=== PATIENT | female | born 1930 | race Hispanic/Latino ===

== ENCOUNTER 2018-01-20 08:10 | Day surgery (SDC) | payer MEDICARE ==
[~2018-01-20] VITALS: Ht 149.9 cm; Wt 52.5 kg
[~2018-01-20 08:10] MED LIST: LEVO100T12 PO; SODIUM CHLORIDE 0.9% 1000ML 1,000 ML IV ONE
[2018-01-20 10:21] VITALS: BP 137/69
[2018-01-20] MEDS ORDERED: LEVO25TA54 PO (10:29)
[2018-01-20] MEDS ORDERED: ISOVUE-370 50ML VIAL IV ONE (11:16)
[2018-01-20] MEDS ORDERED: PROPOFOL 1000 MG/100 ML 100 ML IV ONE (11:33)
[2018-01-20] MEDS ORDERED: GLUCAGON 1MG KIT 1 MG ML ONE (11:54)
[2018-01-20 12:28] VITALS: BP 108/76
[2018-01-20] MEDS ORDERED: INDOMETHACIN 50 MG SUPP.RECT RC SCH (12:30)
== END 2018-01-20 13:40 | disposition home or self-care (01) ==
LOC: ENDO 08:10 → DAH 08:10 → ENDO 13:40
PROVIDERS: ATTEND Internal Medicine
DX: R17 Unspecified jaundice (principal); K83.1 Obstruction of bile duct; E03.9 Hypothyroidism, unspecified; Z85.00 Personal history of malignant neoplasm of unspecified digestive organ; Z90.49 Acquired absence of other specified parts of digestive tract; Z98.890 Other specified postprocedural states; Z79.899 Other long term (current) drug therapy; Z80.0 Family history of malignant neoplasm of digestive organs
CPT/HCPCS: 43262; 43274; 74330; A4606; C1769; C2625; J1610; J2704; J7030; Q9967

== ENCOUNTER → 2018-01-27 | Outpatient (CLI) | payer MEDICARE ==
[~2018-01-27] MED LIST changes: +BISA-72 PO; -LEVO100T12 PO; +LEVO25TA54 PO; +PROC10TA13 PO; -SODIUM CHLORIDE 0.9% 1000ML 1,000 ML IV ONE
== END | disposition home or self-care (01) ==
LOC: OIH 14:20
PROVIDERS: ATTEND Internal Medicine
DX: R17 Unspecified jaundice (principal); M81.0 Age-related osteoporosis without current pathological fracture
CPT/HCPCS: 74018

== ENCOUNTER 2018-02-08 09:54 | Inpatient (IN) | payer MEDICARE ==
[~2018-02-08] VITALS: Ht 149.9 cm; Wt 53.6 kg
[~2018-02-08 09:54] MED LIST changes: -BISA-72 PO; -PROC10TA13 PO
[2018-02-08 10:20] LABS: BASOPHILS % (AUTO) 0.1 % (0.0-5.0); EOSINOPHILS % (AUTO) 0.1 % (0.0-8.0); HEMATOCRIT 22.8 % (36-48); LYMPHOCYTES % (AUTO) 10.4 % (21.0-51.0); MEAN CORPUSCULAR HEMOGLOBIN 33.5 pg (27.0-33.0); MEAN CORPUSCULAR HGB CONC 34.3 g/dL (32.0-36.0); MEAN CORPUSCULAR VOLUME 97.7 fL (79-99); MONOCYTES % (AUTO) 6.3 % (3.0-13.0); NEUTROPHILS % (AUTO) 83.1 % (40.0-77.0); PLATELET COUNT (AUTO) 321 K/uL (130-400); RED BLOOD CELL COUNT(AUTO) 2.33 MIL/uL (4.00-5.50); RED CELL DISTRIBUTION WIDTH 15.6 % (11.0-15.5)
[2018-02-08 10:25] LABS: WHITE BLOOD COUNT (AUTO) 31.4 K/uL (4.8-10.8)
[2018-02-08 10:30] LABS: CREATININE 1.9 mg/dL (0.5-1.5); INR 1.15 (0.85-1.15); PARTIAL THROMBOPLASTIN TIME 28.1 SEC (26.3-35.5); POTASSIUM 3.9 mmol/L (3.5-5.1)
[2018-02-08 10:40] LABS: ALBUMIN 1.6 g/dL (3.5-5.0); BILIRUBIN,TOTAL 9.8 mg/dL (0.2-1.0); TOTAL PROTEIN, SERUM 7.6 g/dL (6.0-8.3)
[2018-02-08 10:51] LABS: BAND NEUTROPHILS % (MANUAL) 1 % (0-2); LYMPHOCYTES % (MANUAL) 8 % (22-44); MONOCYTES % (MANUAL) 3 % (2-9); SEGMENTED NEUTROPHILS % 88 % (40-70)
[2018-02-08 10:53] LABS: MAN.DIFF COMMENT-IMPRESSION MANUAL DIFFERENTIAL; PLATELET MORPHOLOGY COMMENT ADEQUATE
[2018-02-08 11:06] LABS: AMYLASE 90 U/L (25-115); CREATINE KINASE MB < 0.5 ng/mL (0.5-3.6); CREATINE KINASE, TOTAL 36 U/L (21-232); LIPASE 895 U/L (114-286)
[2018-02-08] MEDS ORDERED: MEROPENEM 1 GM VIAL ONE (12:50)
[2018-02-08] MEDS ORDERED: SODIUM CHLORIDE 0.9% 1000ML 1,000 ML IV ONE (12:51)
[2018-02-08] MEDS ORDERED: DIPHENHYDRAMINE HCL 25 MG CAPSULE PO PRN (14:30)
[2018-02-08] MEDS ORDERED: MORPHINE SULFATE 2 MG/ML 1ML SYG IV PRN (14:30)
[2018-02-08] MEDS ORDERED: ACETAMINOPHEN-CODEINE 300/30MG TAB PO PRN ×2 (14:30)
[2018-02-08] MEDS ORDERED: LACTULOSE 20 GM/30 ML UDCUP PO PRN (14:30)
[2018-02-08] MEDS ORDERED: GUAIFENESIN-DM 200/20 MG 10 ML PO PRN (14:30)
[2018-02-08] MEDS ORDERED: MAG HYDROX/AL HYDROX/SIMETH ES 30 ML SUSP UDCUP PO PRN (14:30)
[2018-02-08] MEDS ORDERED: ACETAMINOPHEN 325 MG TAB PO PRN ×2 (14:30)
[2018-02-08] MEDS ORDERED: ONDANSETRON HCL 4 MG/2 ML VIAL IV PRN (14:30)
[2018-02-08] MEDS ORDERED: MEROPENEM 500MG+NS 50ML 50 ML IV SCH (14:30)
[2018-02-08] MEDS ORDERED: HYDRALAZINE HCL 20 MG/ML VIAL IV PRN (14:30)
[2018-02-08] MEDS ORDERED: NITROGLYCERIN 0.4 MG SL TAB SL PRN (14:30)
[2018-02-08] MEDS ORDERED: MORPHINE SULFATE 4 MG/1ML SYG IV PRN (14:30)
[2018-02-08] MEDS ORDERED: DIATR MEGLU/DIATRIZOATE SODIUM 30 ML BOTTLE ONE (18:58)
[2018-02-08 19:30] LABS: BILIRUBIN,DIRECT 7.4 mg/dL (0.0-0.3); BILIRUBIN,TOTAL 8.5 mg/dL (0.2-1.0)
[2018-02-08] MEDS: MEROPENEM 500 MG VIAL IVP SCH (21:00)
[2018-02-08] MEDS ORDERED: MEROPENEM 500 MG VIAL ONE (21:51)
[2018-02-08 22:21] VITALS: BP 112/52
[2018-02-09 03:54] VITALS: BP 109/47
[2018-02-09] MEDS: SODIUM CHLORIDE 0.9% 1000ML 1,000 ML IV SCH ×2 (04:30→16:27)
[2018-02-09 04:37] LABS: MEAN CORPUSCULAR HEMOGLOBIN 32.2 pg (27.0-33.0); MEAN CORPUSCULAR HGB CONC 33.1 g/dL (32.0-36.0); MEAN CORPUSCULAR VOLUME 97.3 fL (79-99); PLATELET COUNT (AUTO) 288 K/uL (130-400); RED BLOOD CELL COUNT(AUTO) 2.06 MIL/uL (4.00-5.50); RED CELL DISTRIBUTION WIDTH 15.6 % (11.0-15.5); WHITE BLOOD COUNT (AUTO) 20.9 K/uL (4.8-10.8)
[2018-02-09 04:42] LABS: HEMATOCRIT 20.1 % (36-48)
[2018-02-09 04:45] LABS: LYMPHOCYTES % (MANUAL) 15 % (22-44); MAN.DIFF COMMENT-IMPRESSION MANUAL DIFFERENTIAL; MONOCYTES % (MANUAL) 7 % (2-9); PLATELET MORPHOLOGY COMMENT ADEQUATE; REACTIVE LYMPHOCYTES 1 % (0-0); SEGMENTED NEUTROPHILS % 77 % (40-70)
[2018-02-09 04:57] LABS: ALBUMIN 1.2 g/dL (3.5-5.0); BILIRUBIN,TOTAL 8.6 mg/dL (0.2-1.0); CREATININE 1.5 mg/dL (0.5-1.5); MAGNESIUM 1.5 mg/dL (1.80-2.40); PHOSPHORUS 2.9 mg/dL (2.5-4.9); POTASSIUM 3.8 mmol/L (3.5-5.1); TOTAL PROTEIN, SERUM 5.9 g/dL (6.0-8.3)
[2018-02-09] MEDS ORDERED: SODIUM CHLORIDE 0.9% 1000ML 1,000 ML IV ONE (05:01)
[2018-02-09] MEDS: MEROPENEM 500 MG VIAL IVP SCH ×3 (05:04→21:27)
[2018-02-09] MEDS ORDERED: BISA-72 PO (07:59)
[2018-02-09] MEDS ORDERED: PROC10TA13 PO (07:59)
[2018-02-09 08:00] VITALS: BP 91/38
[2018-02-09] MEDS: FAMOTIDINE 20MG TAB 20 MG TAB PO SCH (10:02)
[2018-02-09 12:00] VITALS: BP 106/52
[2018-02-09] MEDS ORDERED: SODIUM CHLORIDE 0.9% 250 ML IV ONE (15:22)
[2018-02-09 16:00] VITALS: BP_SYST 107; BP_SYST 139; BP_DIAS 54; BP_DIAS 75
[2018-02-09] MEDS ORDERED: MAGNESIUM 2GM PREMIX 50ML 50 ML IV SCH (19:30)
[2018-02-09 19:35] VITALS: BP 109/50
[2018-02-09 21:25] LABS: APPEARANCE,URINE Cloudy (CLEAR); BILIRUBIN,URINE Large (NEGATIVE); COLOR,URINE Dark Yellow (YELLOW); GLUCOSE, URINE (UA) Negative (NEGATIVE); KETONES,URINE Negative (NEGATIVE); LEUKOCYTE ESTERASE ,URINE Trace (NEGATIVE); NITRATE,URINE Negative (NEGATIVE); OCCULT BLOOD,URINE Negative (NEGATIVE); PH,URINE 5.5 (5.0-8.0); PROTEIN,URINE Trace (NEGATIVE)
[2018-02-09 21:53] LABS: SQUAMOUS EPITHELIAL CELL,UR 30-50 /HPF (0-2)
[2018-02-09 21:54] LABS: BACTERIA,URINE Few /HPF (None Seen); RBC,URINE None Seen /HPF (0-1); WBC,URINE 0-1 /HPF (0-1)
[2018-02-10] VITALS (7 sets, daily range): BP systolic 110–121; BP diastolic 49–60
[2018-02-10 05:26] LABS: HEMATOCRIT 24.2 % (36-48); MEAN CORPUSCULAR HEMOGLOBIN 32.5 pg (27.0-33.0); MEAN CORPUSCULAR HGB CONC 35.1 g/dL (32.0-36.0); MEAN CORPUSCULAR VOLUME 92.6 fL (79-99); PLATELET COUNT (AUTO) 256 K/uL (130-400); RED BLOOD CELL COUNT(AUTO) 2.62 MIL/uL (4.00-5.50); RED CELL DISTRIBUTION WIDTH 19.2 % (11.0-15.5); WHITE BLOOD COUNT (AUTO) 15.8 K/uL (4.8-10.8)
[2018-02-10 05:55] LABS: ALBUMIN 1.1 g/dL (3.5-5.0); BILIRUBIN,DIRECT 7.9 mg/dL (0.0-0.3); BILIRUBIN,TOTAL 9.2 mg/dL (0.2-1.0); CREATININE 1.4 mg/dL (0.5-1.5); POTASSIUM 3.6 mmol/L (3.5-5.1); TOTAL PROTEIN, SERUM 5.9 g/dL (6.0-8.3)
[2018-02-10] MEDS: MEROPENEM 500 MG VIAL IVP SCH ×3 (05:55→22:30)
[2018-02-10] MEDS: LEVOTHYROXINE 25 MCG TABLET PO SCH (06:02)
[2018-02-10] MEDS: SODIUM CHLORIDE 0.9% 1000ML 1,000 ML IV SCH ×2 (07:10→20:30)
[2018-02-10] MEDS: FAMOTIDINE 20MG TAB 20 MG TAB PO SCH (08:32)
[2018-02-10] MEDS ORDERED: POTASSIUM CHLORIDE 20MEQ/100ML 100 ML IV PRN (17:00)
[2018-02-10] MEDS ORDERED: POTASSIUM CHLORIDE 10% ELIXIR 20 MEQ/15 ML UDCUP PO PRN (17:00)
[2018-02-10] MEDS ORDERED: POTASSIUM CHLORIDE 20 MEQ ERTAB PO PRN (17:00)
[2018-02-10] MEDS ORDERED: LIDOCAINE HCL-MPF 1% 2ML VIAL IVP PRN (17:00)
[2018-02-11 04:34] LABS: BASOPHILS % (AUTO) 0.2 % (0.0-5.0); EOSINOPHILS % (AUTO) 1.3 % (0.0-8.0); HEMATOCRIT 28.7 % (36-48); LYMPHOCYTES % (AUTO) 19.6 % (21.0-51.0); MEAN CORPUSCULAR HEMOGLOBIN 31.2 pg (27.0-33.0); MEAN CORPUSCULAR HGB CONC 33.2 g/dL (32.0-36.0); MONOCYTES % (AUTO) 8.5 % (3.0-13.0); NEUTROPHILS % (AUTO) 70.4 % (40.0-77.0); PLATELET COUNT (AUTO) 315 K/uL (130-400); RED BLOOD CELL COUNT(AUTO) 3.05 MIL/uL (4.00-5.50); RED CELL DISTRIBUTION WIDTH 19.2 % (11.0-15.5); WHITE BLOOD COUNT (AUTO) 16.3 K/uL (4.8-10.8)
[2018-02-11 04:51] LABS: ALBUMIN 1.3 g/dL (3.5-5.0); BILIRUBIN,TOTAL 10.4 mg/dL (0.2-1.0); CREATININE 1.3 mg/dL (0.5-1.5); POTASSIUM 3.9 mmol/L (3.5-5.1); TOTAL PROTEIN, SERUM 6.4 g/dL (6.0-8.3)
[2018-02-11 04:53] LABS: BILIRUBIN,DIRECT 9.2 mg/dL (0.0-0.3)
[2018-02-11 04:58] VITALS: BP 102/46
[2018-02-11] MEDS: MEROPENEM 500 MG VIAL IVP SCH ×3 (06:31→22:02)
[2018-02-11] MEDS: LEVOTHYROXINE 25 MCG TABLET PO SCH (06:35)
[2018-02-11 07:00] VITALS: BP 106/42
[2018-02-11] MEDS: FAMOTIDINE 20MG TAB 20 MG TAB PO SCH (08:35)
[2018-02-11] MEDS: SODIUM CHLORIDE 0.9% 1000ML 1,000 ML IV SCH (08:51)
[2018-02-11 11:00] VITALS: BP 103/48
[2018-02-11 16:00] VITALS: BP 118/59
[2018-02-11 20:00] VITALS: BP 110/56
[2018-02-12] VITALS (7 sets, daily range): BP systolic 99–120; BP diastolic 45–65
[2018-02-12] MEDS: MEROPENEM 500 MG VIAL IVP SCH ×3 (04:48→21:17)
[2018-02-12 06:37] LABS: CREATININE 1.1 mg/dL (0.5-1.5); POTASSIUM 3.8 mmol/L (3.5-5.1)
[2018-02-12] MEDS: LEVOTHYROXINE 25 MCG TABLET PO SCH (07:04)
[2018-02-12] MEDS: FAMOTIDINE 20MG TAB 20 MG TAB PO SCH (09:03)
[2018-02-13 03:35] VITALS: BP 107/59
[2018-02-13] MEDS: MEROPENEM 500 MG VIAL IVP SCH ×3 (05:10→21:47)
[2018-02-13 05:52] LABS: BASOPHILS % (AUTO) 0.4 % (0.0-5.0); EOSINOPHILS % (AUTO) 1.4 % (0.0-8.0); HEMATOCRIT 26.4 % (36-48); LYMPHOCYTES % (AUTO) 16.9 % (21.0-51.0); MEAN CORPUSCULAR HEMOGLOBIN 31.2 pg (27.0-33.0); MEAN CORPUSCULAR HGB CONC 33.6 g/dL (32.0-36.0); MEAN CORPUSCULAR VOLUME 92.8 fL (79-99); MONOCYTES % (AUTO) 9.7 % (3.0-13.0); NEUTROPHILS % (AUTO) 71.6 % (40.0-77.0); PLATELET COUNT (AUTO) 253 K/uL (130-400); RED BLOOD CELL COUNT(AUTO) 2.84 MIL/uL (4.00-5.50); RED CELL DISTRIBUTION WIDTH 18.6 % (11.0-15.5); WHITE BLOOD COUNT (AUTO) 14.1 K/uL (4.8-10.8)
[2018-02-13 06:21] LABS: ALBUMIN 1.2 g/dL (3.5-5.0); BILIRUBIN,TOTAL 11.1 mg/dL (0.2-1.0); TOTAL PROTEIN, SERUM 5.9 g/dL (6.0-8.3)
[2018-02-13 06:35] LABS: BILIRUBIN,DIRECT 9.6 mg/dL (0.0-0.3)
[2018-02-13] MEDS: LEVOTHYROXINE 25 MCG TABLET PO SCH (06:37)
[2018-02-13 08:24] VITALS: BP 99/47
[2018-02-13] MEDS: FAMOTIDINE 20MG TAB 20 MG TAB PO SCH (09:17)
[2018-02-13 14:20] VITALS: BP 122/66
[2018-02-13 19:00] VITALS: BP 109/52
[2018-02-13 23:00] VITALS: BP 114/57
[2018-02-14 03:00] VITALS: BP 130/61
[2018-02-14] MEDS: MEROPENEM 500 MG VIAL IVP SCH ×3 (04:48→20:51)
[2018-02-14 04:54] LABS: HEMATOCRIT 26.7 % (36-48); MEAN CORPUSCULAR HEMOGLOBIN 32.1 pg (27.0-33.0); MEAN CORPUSCULAR HGB CONC 34.4 g/dL (32.0-36.0); MEAN CORPUSCULAR VOLUME 93.3 fL (79-99); PLATELET COUNT (AUTO) 256 K/uL (130-400); RED BLOOD CELL COUNT(AUTO) 2.86 MIL/uL (4.00-5.50); RED CELL DISTRIBUTION WIDTH 17.7 % (11.0-15.5); WHITE BLOOD COUNT (AUTO) 14.9 K/uL (4.8-10.8)
[2018-02-14 05:19] LABS: ALBUMIN 1.2 g/dL (3.5-5.0); BILIRUBIN,TOTAL 11.9 mg/dL (0.2-1.0); TOTAL PROTEIN, SERUM 6.1 g/dL (6.0-8.3)
[2018-02-14 05:23] LABS: BILIRUBIN,DIRECT 10.4 mg/dL (0.0-0.3)
[2018-02-14] MEDS: LEVOTHYROXINE 25 MCG TABLET PO SCH (06:11)
[2018-02-14 07:41] VITALS: BP 109/55
[2018-02-14 11:40] VITALS: BP 115/53
[2018-02-14] MEDS ORDERED: ONDANSETRON HCL MDV 20ML 2 MG/ML VIAL IV PRN (12:29)
[2018-02-14] MEDS: FAMOTIDINE 20MG TAB 20 MG TAB PO SCH (13:36)
[2018-02-14 16:24] VITALS: BP 107/57
[2018-02-14 20:00] VITALS: BP 116/59
[2018-02-15] VITALS (12 sets, daily range): BP systolic 82–132; BP diastolic 42–62
[2018-02-15 03:40] LABS: HEMATOCRIT 26.4 % (36-48); MEAN CORPUSCULAR HEMOGLOBIN 30.8 pg (27.0-33.0); MEAN CORPUSCULAR VOLUME 93.3 fL (79-99); PLATELET COUNT (AUTO) 225 K/uL (130-400); RED BLOOD CELL COUNT(AUTO) 2.83 MIL/uL (4.00-5.50); RED CELL DISTRIBUTION WIDTH 17.5 % (11.0-15.5); WHITE BLOOD COUNT (AUTO) 13.1 K/uL (4.8-10.8)
[2018-02-15 04:09] LABS: ALBUMIN 1.2 g/dL (3.5-5.0); BILIRUBIN,TOTAL 12.3 mg/dL (0.2-1.0); TOTAL PROTEIN, SERUM 5.9 g/dL (6.0-8.3)
[2018-02-15 04:40] LABS: BILIRUBIN,DIRECT 10.8 mg/dL (0.0-0.3)
[2018-02-15] MEDS: MEROPENEM 500 MG VIAL IVP SCH ×3 (05:12→22:21)
[2018-02-15] MEDS: LEVOTHYROXINE 25 MCG TABLET PO SCH (05:36)
[2018-02-15] MEDS: FAMOTIDINE 20MG TAB 20 MG TAB PO SCH (09:00)
[2018-02-15] MEDS ORDERED: ISOVUE-370 50ML VIAL IV ONE (10:17)
[2018-02-15] MEDS ORDERED: PROPOFOL 10 MG/ML 20ML VIAL IV ONE (10:34)
[2018-02-16] VITALS: BP 109/52
[2018-02-16 03:53] VITALS: BP 98/48
[2018-02-16 04:45] LABS: HEMATOCRIT 26.4 % (36-48); MEAN CORPUSCULAR HEMOGLOBIN 32.5 pg (27.0-33.0); MEAN CORPUSCULAR HGB CONC 34.9 g/dL (32.0-36.0); MEAN CORPUSCULAR VOLUME 93.2 fL (79-99); PLATELET COUNT (AUTO) 239 K/uL (130-400); RED BLOOD CELL COUNT(AUTO) 2.84 MIL/uL (4.00-5.50); RED CELL DISTRIBUTION WIDTH 17.2 % (11.0-15.5); WHITE BLOOD COUNT (AUTO) 13.4 K/uL (4.8-10.8)
[2018-02-16] MEDS: LEVOTHYROXINE 25 MCG TABLET PO SCH (04:55)
[2018-02-16] MEDS: MEROPENEM 500 MG VIAL IVP SCH ×3 (05:04→22:26)
[2018-02-16 05:36] LABS: ALBUMIN 1.1 g/dL (3.5-5.0); BILIRUBIN,TOTAL 12.3 mg/dL (0.2-1.0)
[2018-02-16 05:44] LABS: BILIRUBIN,DIRECT 10.9 mg/dL (0.0-0.3)
[2018-02-16 08:00] VITALS: BP 94/46
[2018-02-16] MEDS: FAMOTIDINE 20MG TAB 20 MG TAB PO SCH (09:15)
[2018-02-16 09:35] LABS: CREATININE 0.9 mg/dL (0.5-1.5); POTASSIUM 3.8 mmol/L (3.5-5.1)
[2018-02-16 11:38] VITALS: BP 96/44
[2018-02-16 16:00] VITALS: BP 114/53
[2018-02-16 20:00] VITALS: BP 114/53
[2018-02-17] VITALS (7 sets, daily range): BP systolic 104–125; BP diastolic 49–69
[2018-02-17] MEDS: MEROPENEM 500 MG VIAL IVP SCH ×3 (05:16→20:43)
[2018-02-17] MEDS: LEVOTHYROXINE 25 MCG TABLET PO SCH (05:16)
[2018-02-17] MEDS: FAMOTIDINE 20MG TAB 20 MG TAB PO SCH (09:00)
[2018-02-17 09:51] LABS: INR 1.19 (0.85-1.15); PARTIAL THROMBOPLASTIN TIME 31.3 SEC (26.3-35.5); PROTHROMBIN TIME 12.2 SEC (9.6-11.6)
[2018-02-18 04:00] VITALS: BP 108/45
[2018-02-18] MEDS: MEROPENEM 500 MG VIAL IVP SCH ×2 (04:45→13:30)
[2018-02-18] MEDS: LEVOTHYROXINE 25 MCG TABLET PO SCH (06:25)
[2018-02-18 08:00] VITALS: BP 114/53
[2018-02-18] MEDS: FAMOTIDINE 20MG TAB 20 MG TAB PO SCH (09:00)
[2018-02-18 12:00] VITALS: BP 121/58
[2018-02-18 15:55] VITALS: BP 109/57
== END 2018-02-18 16:25 | disposition home or self-care (01) | DRG 871 ==
LOC: EDH 09:54 → OBSVTOIN 13:49 → EDHIP 13:49 → 3DH 21:30
PROVIDERS: ADMIT Internal Medicine; ATTEND Internal Medicine
PROC: 0FPB8DZ Removal of Intraluminal Device from Hepatobiliary Duct, Via Natural or Artificial Opening Endoscopic (ICD-10-PCS; principal; 2018-02-15)
PROC: 0F798DZ Dilation of Common Bile Duct with Intraluminal Device, Via Natural or Artificial Opening Endoscopic (ICD-10-PCS; 2018-02-15)
PROC: 30233N1 Transfusion of Nonautologous Red Blood Cells into Peripheral Vein, Percutaneous Approach (ICD-10-PCS; 2018-02-15)
PROC: 02H633Z Insertion of Infusion Device into Right Atrium, Percutaneous Approach (ICD-10-PCS; 2018-02-17)
DX: A41.51 Sepsis due to Escherichia coli [E. coli] (principal); K83.1 Obstruction of bile duct; K83.0 Cholangitis; E44.0 Moderate protein-calorie malnutrition; J18.9 Pneumonia, unspecified organism; R18.8 Other ascites; D64.9 Anemia, unspecified; E87.1 Hypo-osmolality and hyponatremia; R17 Unspecified jaundice; E11.9 Type 2 diabetes mellitus without complications; N39.0 Urinary tract infection, site not specified; Z85.43 Personal history of malignant neoplasm of ovary; Z68.23 Body mass index [BMI] 23.0-23.9, adult; B96.89 Other specified bacterial agents as the cause of diseases classified elsewhere; E03.9 Hypothyroidism, unspecified; E78.00 Pure hypercholesterolemia, unspecified; E78.5 Hyperlipidemia, unspecified; E86.0 Dehydration; I10 Essential (primary) hypertension; N28.9 Disorder of kidney and ureter, unspecified; M19.90 Unspecified osteoarthritis, unspecified site; Z16.24 Resistance to multiple antibiotics; Z74.01 Bed confinement status; Z90.49 Acquired absence of other specified parts of digestive tract; Z85.51 Personal history of malignant neoplasm of bladder; Z85.09 Personal history of malignant neoplasm of other digestive organs; Z83.3 Family history of diabetes mellitus
CPT/HCPCS: 36415; 36430; 71045; 74176; 74330; 80048; 80053; 80076; 81001; 82140; 82150; 82247; 82248; 82550; 82553; 82977; 83605; 83690; 83735; 83880; 84100; 84484; 85007; 85025; 85027; 85060; 85610; 85730; 86156; 86850; 86870; 86900; 86901; 86922; 87040; 87088; 87106; 87186; 88313; 93005; A4218; C1769; C1773; C1874; J2185; J2704; J3475; J7030; P9016; Q9963; Q9967